=== PATIENT | female | born 1990 | race Caucasian/White ===

== ENCOUNTER → 2023-09-23 12:46 | Outpatient (REF) | payer BC, SELFPAY | LOC: RCS 12:46 | PROVIDERS: ATTENDING PHYSICIAN Internal Medicine Cardiovascular Disease; FAMILY PHYSICIAN Registered Nurse | DX: R03.0 Elevated blood-pressure reading, without diagnosis of hypertension (principal); R00.0 Tachycardia, unspecified; R00.2 Palpitations | CPT/HCPCS: 93307; Q9957 ==

== ENCOUNTER → 2023-10-07 06:10 | Outpatient (REF) | payer BC, SELFPAY ==
[2023-10-07 11:05] LABS: Free T4 0.96 ng/dl (0.78-2.19)
[2023-10-07 11:19] LABS: TSH 2.88 uIU/ml (0.47-4.68)
[2023-10-09 12:32] LABS: Aldosterone, Serum 7.1 ng/dL
[2023-10-11 07:29] LABS: Renin Activity Results 1.2 ng/mL/hr
== END ==
LOC: HWLAB 06:10
PROVIDERS: ATTENDING PHYSICIAN Internal Medicine Endocrinology, Diabetes & Metabolism; FAMILY PHYSICIAN Registered Nurse; REFERRING PHYSICIAN Internal Medicine Gastroenterology
DX: R63.5 Abnormal weight gain (principal); I10 Essential (primary) hypertension
CPT/HCPCS: 36415; 82088; 84244; 84439; 84443

== ENCOUNTER → 2023-10-08 07:24 | Outpatient (REF) | payer BC, SELFPAY ==
[2023-10-08 11:14] LABS: 24 Hour Urine Creatinine 1.252 gm/day (0.8-1.8); 24 Hour Urine Total Volume 3340 ml
[2023-10-12 12:38] LABS: 24 Hour Urine Total Volume 3340 mL; Cortisol, Free Urine per 24Hr 24.9 ug/d (<=45.0); Cortisol,Urine Free per Volume 7.45 ug/L; Creatinine, Urine 24 Hour 1269 mg/d (700-1600); Creatinine, Urine per Volume 38 mg/dL; Urine Collection Length 24 hr
== END ==
LOC: REG 07:24
PROVIDERS: ATTENDING PHYSICIAN Internal Medicine Endocrinology, Diabetes & Metabolism; FAMILY PHYSICIAN Registered Nurse
DX: R63.5 Abnormal weight gain (principal); I10 Essential (primary) hypertension
CPT/HCPCS: 81050; 82530; 82570